=== PATIENT | female | born 1970 | race Hispanic/Latino ===

== ENCOUNTER 2022-03-01 23:10 | Emergency (ER) | payer OTHER ==
[2022-03-01] MEDS ORDERED: 0.9% NACL 500ML IV.SOLN 500 ML IV ONE (23:17)
[2022-03-01] MEDS ORDERED: PANTOPRAZOLE 40 MG/VIAL ONE (23:17)
[2022-03-01] MEDS ORDERED: ONDANSETRON 4MG INJ ONE (23:21)
[2022-03-01 23:25] LABS: BASOPHILS % (AUTO) 0.2 % (0.0-5.0); EOSINOPHILS % (AUTO) 3.4 % (0.0-8.0); HEMATOCRIT 41.9 % (36-48); LYMPHOCYTES % (AUTO) 42.9 % (21.0-51.0); MEAN CORPUSCULAR HGB CONC 33.2 g/dL (32.0-36.0); MEAN CORPUSCULAR VOLUME 90.5 fL (79-99); MONOCYTES % (AUTO) 5.5 % (3.0-13.0); NEUTROPHILS % (AUTO) 47.7 % (40.0-77.0); PLATELET COUNT (AUTO) 312 K/uL (130-400); RED BLOOD CELL COUNT(AUTO) 4.63 MIL/uL (4.00-5.50); RED CELL DISTRIBUTION WIDTH 13.1 % (11.0-15.5); WHITE BLOOD COUNT (AUTO) 20.1 K/uL (4.8-10.8)
[2022-03-01] MEDS ORDERED: MORPHINE 2 MG SYG IVP ONE (23:30)
[2022-03-01] MEDS ORDERED: ONDANSETRON 4MG INJ IVP ONE (23:30)
[2022-03-01 23:38] LABS: CREATININE 0.7 mg/dL (0.5-1.5); POTASSIUM 3.5 mmol/L (3.5-5.1)
[2022-03-01 23:42] LABS: ALBUMIN 3.9 g/dL (3.5-5.0); BILIRUBIN,TOTAL 0.1 mg/dL (0.2-1.0); TOTAL PROTEIN, SERUM 7.6 g/dL (6.0-8.3)
[2022-03-01] MEDS ORDERED: MORPHINE 2 MG SYG ONE (23:44)
[2022-03-01] MEDS ORDERED: LIDOCAINE HCL 2% VISCOUS 15 ML UDCUP ONE (23:52)
[2022-03-01] MEDS ORDERED: MAG/ALUM/SIMETH 30 ML UDCUP ONE (23:52)
[2022-03-01] MEDS ORDERED: DICYCLOMINE HCL 10 MG/5 ML ML PO ONE (23:52)
[2022-03-02] MEDS ORDERED: KETOROLAC 15MG/ML VIAL (15MG/ML) IV ONE
[2022-03-02 00:02] LABS: B-TYPE NATRIURETIC PEPTIDE 13 pg/mL (0-100)
[2022-03-02 00:45] VITALS: BP 132/78
== END 2022-03-02 01:13 | disposition home or self-care (01) ==
LOC: EDH 23:10 → EEVIPCON 23:10 → EDH 03-02 01:13
DX: R11.2 Nausea with vomiting, unspecified (principal); T50.6X5A Adverse effect of antidotes and chelating agents, initial encounter; R10.84 Generalized abdominal pain; Z88.0 Allergy status to penicillin; Z88.1 Allergy status to other antibiotic agents; Z88.5 Allergy status to narcotic agent; Z90.89 Acquired absence of other organs; Z90.49 Acquired absence of other specified parts of digestive tract; Y92.89 Other specified places as the place of occurrence of the external cause
CPT/HCPCS: 36415; 80053; 83690; 83880; 84484; 85025; 93005; 96374; 96375; 99284; C9113; J2405; J7040

== ENCOUNTER 2022-06-26 08:29 | Emergency (ER) | payer OTHER ==
[2022-06-26 08:57] LABS: BASOPHILS % (AUTO) 0.3 % (0.0-5.0); EOSINOPHILS % (AUTO) 3.5 % (0.0-8.0); HEMATOCRIT 40.3 % (36-48); LYMPHOCYTES % (AUTO) 35.5 % (21.0-51.0); MEAN CORPUSCULAR HEMOGLOBIN 30.8 pg (27.0-33.0); MEAN CORPUSCULAR HGB CONC 33.7 g/dL (32.0-36.0); MEAN CORPUSCULAR VOLUME 91.2 fL (79-99); MONOCYTES % (AUTO) 7.8 % (3.0-13.0); NEUTROPHILS % (AUTO) 52.6 % (40.0-77.0); PLATELET COUNT (AUTO) 296 K/uL (130-400); RED BLOOD CELL COUNT(AUTO) 4.42 MIL/uL (4.00-5.50); RED CELL DISTRIBUTION WIDTH 13.2 % (11.0-15.5); WHITE BLOOD COUNT (AUTO) 11.7 K/uL (4.8-10.8)
[2022-06-26] MEDS ORDERED: ONDANSETRON 4MG INJ IVP ONE (09:00)
[2022-06-26] MEDS ORDERED: MORPHINE 2 MG SYG IVP SCH (09:00)
[2022-06-26 09:05] LABS: CREATININE 0.7 mg/dL (0.5-1.5); POTASSIUM 3.7 mmol/L (3.5-5.1)
[2022-06-26 09:10] LABS: ALBUMIN 4.1 g/dL (3.5-5.0); TOTAL PROTEIN, SERUM 7.9 g/dL (6.0-8.3)
[2022-06-26 09:35] LABS: B-TYPE NATRIURETIC PEPTIDE 34 pg/mL (0-100)
[2022-06-26 09:42] LABS: INR 0.93 (0.85-1.15); PROTHROMBIN TIME 9.7 SEC (9.6-11.6)
[2022-06-26 09:43] LABS: PARTIAL THROMBOPLASTIN TIME 25.2 SEC (26.3-35.5)
[2022-06-26] MEDS ORDERED: PANTOPRAZOLE 40 MG/VIAL ONE (10:32)
[2022-06-26] MEDS ORDERED: BUSP15 PO (11:22)
[2022-06-26] MEDS ORDERED: NAPR375T6 PO (11:22)
[2022-06-26] MEDS ORDERED: PANT40TA55 PO (11:22)
[2022-06-26 11:47] VITALS: BP 124/74
== END 2022-06-26 11:50 | disposition home or self-care (01) ==
LOC: EDH 08:29
DX: K21.9 Gastro-esophageal reflux disease without esophagitis (principal); F41.9 Anxiety disorder, unspecified; M26.603 Bilateral temporomandibular joint disorder, unspecified; Z88.0 Allergy status to penicillin; Z88.1 Allergy status to other antibiotic agents; Z88.5 Allergy status to narcotic agent; Z90.49 Acquired absence of other specified parts of digestive tract
CPT/HCPCS: 99285; 96374; 70486; 76705; 96375; 80061; 82550; 84484; 80053; 83880; 85025; 85610; 85730; 36415; 93005; J2405; C9113

== ENCOUNTER → 2022-07-13 | Outpatient (CLI) | payer OTHER ==
[~2022-07-13] MED LIST: BUSP15 PO; GADOTERATE MEGLUMINE 10 MMOL/20 ML VIAL IV ONE; NAPR375T6 PO; PANT40TA55 PO
[2022-07-13 12:02] LABS: ALBUMIN 4.1 g/dL (3.5-5.0); CREATININE 0.8 mg/dL (0.5-1.5); POTASSIUM 3.5 mmol/L (3.5-5.1); TOTAL PROTEIN, SERUM 8.1 g/dL (6.0-8.3)
== END | disposition home or self-care (01) ==
LOC: LAB 11:21
PROVIDERS: ATTEND Hospitalist
DX: R51.9 Headache, unspecified (principal); R59.1 Generalized enlarged lymph nodes; Z86.73 Personal history of transient ischemic attack (TIA), and cerebral infarction without residual deficits
CPT/HCPCS: 70553; 80053; 82306; 36415; 70543; A9575

== ENCOUNTER → 2022-07-14 | Outpatient (CLI) | payer OTHER ==
[~2022-07-14] MED LIST changes: +IOHEXOL 350 MG/ML 100ML INFUS..BTL IV ONE
== END | disposition home or self-care (01) ==
LOC: RAH 07:18
PROVIDERS: ATTEND Hospitalist
DX: R59.1 Generalized enlarged lymph nodes (principal); E27.8 Other specified disorders of adrenal gland; R52 Pain, unspecified; Z90.49 Acquired absence of other specified parts of digestive tract
CPT/HCPCS: 74178; Q9967

== ENCOUNTER 2023-03-14 15:19 | Emergency (ER) | payer OTHER ==
[~2023-03-14] VITALS: Ht 154.9 cm; Wt 61.2 kg
[~2023-03-14 15:19] MED LIST changes: -GADOTERATE MEGLUMINE 10 MMOL/20 ML VIAL IV ONE; -IOHEXOL 350 MG/ML 100ML INFUS..BTL IV ONE
[2023-03-14] MEDS ORDERED: METOCLOPRAMIDE 10 MG/2 ML VIAL IVP ONE (15:30)
[2023-03-14] MEDS ORDERED: SOLU-MEDROL 125MG VIAL IVP ONE (15:30)
[2023-03-14] MEDS ORDERED: SOLU-MEDROL 40MG VIAL ONE (15:43)
[2023-03-14 15:58] LABS: BASOPHILS % (AUTO) 0.3 % (0.0-5.0); EOSINOPHILS % (AUTO) 3.8 % (0.0-8.0); HEMATOCRIT 39.6 % (36-48); LYMPHOCYTES % (AUTO) 41.8 % (21.0-51.0); MEAN CORPUSCULAR HEMOGLOBIN 29.9 pg (27.0-33.0); MEAN CORPUSCULAR HGB CONC 33.1 g/dL (32.0-36.0); MEAN CORPUSCULAR VOLUME 90.4 fL (79-99); NEUTROPHILS % (AUTO) 47.8 % (40.0-77.0); PLATELET COUNT (AUTO) 312 K/uL (130-400); RED BLOOD CELL COUNT(AUTO) 4.38 MIL/uL (4.00-5.50); RED CELL DISTRIBUTION WIDTH 13.6 % (11.0-15.5); WHITE BLOOD COUNT (AUTO) 11.8 K/uL (4.8-10.8)
[2023-03-14] MEDS ORDERED: SOLU-MEDROL 40MG VIAL IVP SCH (16:00)
[2023-03-14 16:11] LABS: CREATININE 0.7 mg/dL (0.5-1.5); POTASSIUM 3.6 mmol/L (3.5-5.1)
[2023-03-14 16:16] LABS: TOTAL PROTEIN, SERUM 7.3 g/dL (6.0-8.3)
[2023-03-14] MEDS ORDERED: GADOTERATE MEGLUMINE 10 MMOL/20 ML VIAL IV ONE (16:21)
[2023-03-14 18:28] VITALS: BP 139/85
[2023-03-14] MEDS ORDERED: TOPI25TA48 PO (18:31)
[2023-03-14] MEDS ORDERED: OXYC-38 PO (18:31)
== END 2023-03-14 18:46 | disposition home or self-care (01) ==
LOC: EDH 15:19
DX: G50.0 Trigeminal neuralgia (principal); R51.9 Headache, unspecified; R68.84 Jaw pain; R09.81 Nasal congestion; Z79.899 Other long term (current) drug therapy; Z90.49 Acquired absence of other specified parts of digestive tract; Z98.890 Other specified postprocedural states; Z85.820 Personal history of malignant melanoma of skin; Z88.0 Allergy status to penicillin; Z88.1 Allergy status to other antibiotic agents; Z88.5 Allergy status to narcotic agent
CPT/HCPCS: 70553; 99285; 96374; 96375; 80053; 85025; 36415; 70543; J2920; J2765; A9575

== ENCOUNTER → 2023-04-12 | Outpatient (CLI) | payer OTHER ==
[~2023-04-12] MED LIST changes: +OXYC-38 PO; +TOPI25TA48 PO
[2023-04-12 12:26] LABS: BASOPHILS % (AUTO) 0.3 % (0.0-5.0); EOSINOPHILS % (AUTO) 2.4 % (0.0-8.0); HEMATOCRIT 41.7 % (36-48); MEAN CORPUSCULAR HEMOGLOBIN 30.2 pg (27.0-33.0); MEAN CORPUSCULAR HGB CONC 33.8 g/dL (32.0-36.0); MEAN CORPUSCULAR VOLUME 89.3 fL (79-99); MONOCYTES % (AUTO) 6.2 % (3.0-13.0); NEUTROPHILS % (AUTO) 56.7 % (40.0-77.0); PLATELET COUNT (AUTO) 344 K/uL (130-400); RED BLOOD CELL COUNT(AUTO) 4.67 MIL/uL (4.00-5.50); RED CELL DISTRIBUTION WIDTH 13.5 % (11.0-15.5)
[2023-04-12 12:34] LABS: CREATININE 0.8 mg/dL (0.5-1.5); POTASSIUM 3.7 mmol/L (3.5-5.1)
== END | disposition home or self-care (01) ==
LOC: LAB 12:30
PROVIDERS: ATTEND Hospitalist
DX: E86.0 Dehydration (principal)
CPT/HCPCS: 36415; 80053; 85025

== ENCOUNTER 2024-03-31 11:07 | Emergency (ER) | payer OTHER ==
[~2024-03-31] VITALS: Ht 154.9 cm; Wt 56.7 kg
[2024-03-31 12:32] VITALS: BP 122/63; PULSE 81; RESP 20; O2SAT 98
== END 2024-03-31 12:32 | disposition home or self-care (01) ==
LOC: EDH 11:07
DX: S90.31XA Contusion of right foot, initial encounter (principal); Z79.899 Other long term (current) drug therapy; Z88.0 Allergy status to penicillin; Z88.1 Allergy status to other antibiotic agents; Z88.5 Allergy status to narcotic agent; Z90.49 Acquired absence of other specified parts of digestive tract; X50.1XXA Overexertion from prolonged static or awkward postures, initial encounter; Y93.89 Activity, other specified; Y92.89 Other specified places as the place of occurrence of the external cause; Y99.8 Other external cause status
CPT/HCPCS: 29515; 73562; 73610; 73630

== ENCOUNTER → 2024-09-03 | Outpatient (CLI) | payer OTHER ==
[~2024-09-03] MED LIST changes: +GADOTERATE MEGLUMINE 10 MMOL/20 ML VIAL IV ONE; +NAPR-1505 PO; -NAPR375T6 PO
[2024-09-03 08:05] LABS: BASOPHILS # (AUTO) 0.03 K/uL (0.00-0.20); BASOPHILS % (AUTO) 0.3 % (0.0-5.0); EOSINOPHILS # (AUTO) 0.41 K/uL (0.00-0.70); EOSINOPHILS % (AUTO) 3.9 % (0.0-8.0); HEMATOCRIT 44.3 % (36-48); IMMATURE GRANULOCYTE ABSOLUTE 0.02 K/uL (0-1); LYMPHOCYTES # (AUTO) 3.9 K/uL (1.0-4.8); LYMPHOCYTES % (AUTO) 37.6 % (21.0-51.0); MEAN CORPUSCULAR HEMOGLOBIN 31.1 pg (27.0-33.0); MEAN CORPUSCULAR HGB CONC 33.6 g/dL (32.0-36.0); MEAN CORPUSCULAR VOLUME 92.5 fL (79-99); MONOCYTES # (AUTO) 0.7 K/uL (0.1-1.0); MONOCYTES % (AUTO) 6.6 % (3.0-13.0); NEUTROPHILS # (AUTO) 5.4 K/uL (1.8-7.7); NEUTROPHILS % (AUTO) 51.4 % (40.0-77.0); PLATELET COUNT (AUTO) 363 K/uL (130-400); RED BLOOD CELL COUNT(AUTO) 4.79 MIL/uL (4.00-5.50); RED CELL DISTRIBUTION WIDTH 13.6 % (11.0-15.5); WHITE BLOOD COUNT (AUTO) 10.4 K/uL (4.8-10.8)
[2024-09-03 08:30] LABS: ALBUMIN 3.9 g/dL (3.5-5.0); BILIRUBIN,TOTAL 0.5 mg/dL (0.2-1.0); CREATININE 0.7 mg/dL (0.5-1.0); POTASSIUM 3.6 mmol/L (3.5-5.1); THYROID STIMULATING HORMONE 1.33 uIU/mL (0.36-3.74); TOTAL PROTEIN, SERUM 7.8 g/dL (6.0-8.3)
[2024-09-03 09:24] LABS: ERYTHROCYTE SEDIMENTATION RATE 15 MM/HR (0-30)
--- NOTE | 2024-09-03 10:24 | HMCIMG ---
US THYROID/NECK REASON: enlarged lymph nodes, nontoxic single thyroid nodule COMPARISON: None TECHNIQUE: Routine thyroid sonogram was performed. FINDINGS: There is homogeneous appearing thyroid parenchyma. Right lobe is 3.5 x 1.3 x 1.9 cm. Left is 3.2 x 1.2 x 1.5 cm. There is a 3 mm cyst in the central portion of the right lobe of the thyroid. There are no solid masses in either lobe of the thyroid. There are adjacent normal-appearing lymph nodes, most subcentimeter in size, largest 1.3 cm. Both submandibular glands were visualized and appear normal. The region of interest in the left anterior neck appears to correspond to with a prominent portion of the thyroid cartilage. IMPRESSION: 1. 3 mm cyst right lobe of the thyroid gland, thyroid sonogram is otherwise normal. 2. Normal-appearing lymph nodes in the right and left anterior cervical triangle as well. 3. Possible palpable mass appears to correspond with a prominent left side of the thyroid cartilage.
--- NOTE | 2024-09-03 10:29 | HMCIMG ---
US SOFT TISSUE GROIN REASON: Enlarged lymph nodes COMPARISON: None TECHNIQUE: Bilateral inguinal ultrasound was performed for evaluation of lymphadenopathy. FINDINGS: There are multiple bilateral inguinal lymph nodes. All but 2 on the right are subcentimeter in size, there is an 11 mm node and a 2.5 cm node. These all have normal-appearing fatty replaced ministerio. Left side also shows multiple lymph nodes. Many of these are greater than 1 cm, however the largest is 1.9 cm. These also appear to have normal fatty replaced ministerio. IMPRESSION: 1. Nonspecific bilateral inguinal lymphadenopathy.
[2024-09-03 10:39] LABS: EOSINOPHILS % (MANUAL) 3 % (1-6); LYMPHOCYTES % (MANUAL) 22 % (22-44); MONOCYTES % (MANUAL) 9 % (2-9); SEGMENTED NEUTROPHILS % 66 % (40-70); TOTAL CELLS COUNTED 100
[2024-09-03 10:40] LABS: MAN.DIFF COMMENT-IMPRESSION MANUAL DIFFERENTIAL; PLATELET MORPHOLOGY COMMENT ADEQUATE; WBC MORPHOLOGY NORMAL
--- NOTE | 2024-09-03 10:55 | HMCIMG ---
CHEST 2VWS REASON: DR ORDER COMPARISON: None FINDINGS: Two views of the chest were obtained. Lungs are clear. Heart size is normal. There is no pulmonary vascular congestion. Mediastinum and bony thorax appear unremarkable. IMPRESSION: Normal two view chest x-ray.
--- NOTE | 2024-09-03 11:05 | HMCIMG ---
MR BRAIN WWO CON REASON: G44.021 Chronic cluster headache, intractable COMPARISON: There are no prior MRI scans available for comparison. TECHNIQUE: Routine cerebral imaging protocol was performed. Images are also obtained pre and post gadolinium contrast infusion. CONTRAST: 12 cc Clariscan IV. FINDINGS: There is normal appearing brain parenchyma. There are no focal mass lesions. There are no areas of abnormal contrast enhancement or abnormal signal intensity. Ventricles and sulci appear normal. Posterior fossa and brainstem structures appear unremarkable. There is no evidence of intracranial hemorrhage. Diffusion-weighted images are negative for an acute ischemic process. There are no abnormal fluid collections. Extracranial soft tissues appear normal as well. IMPRESSION: 1. Normal pre and postcontrast MRI of the brain.
--- NOTE | 2024-09-03 11:06 | HMCIMG ---
MR ANGIO HEAD, WO CON REASON: CLUSTER HEADACHES TECHNIQUE: Routine MRA sequences were generated with gradient-recalled source data. FINDINGS: There are normal-appearing internal carotid arteries. Anterior, middle and posterior cerebral arteries appear unremarkable. Posterior fossa vessels appear normal as well. There is no evidence of aneurysm or AVM. There is no evidence of focal vessel occlusion. IMPRESSION: Normal MR angiography of the brain.
--- NOTE | 2024-09-03 11:22 | HMCIMG ---
SCREENING MAMMOGRAM REASON: Annual Exam COMPARISON: None, reestablish baseline TECHNIQUE: CC and MLO views of the bilateral breasts were performed.Implant displacement views were performed as well. CAD was performed as well. FINDINGS: Parenchymal density: The breasts are heterogeneously dense, which may obscure small masses. There are no focal mass lesions. There are no pathologic appearing calcifications. There is no evidence of architectural distortion or skin thickening. There are implants in place without evidence of rupture. IMPRESSION: Normal screening mammogram The patient was entered into a reminder system with a target due date for their next mammogram. BI-RADS CATEGORY 2: BENIGN FINDINGS Recommend monthly self breast exam as well as annual clinical examination. A negative x-ray should not delay biopsy if a dominant or clinically suspicious mass is present, since 8-10% of cancers are not identified by mammography. Dense breasts particularly, may obscure an underlying neoplasm. Some of these may be detected clinically and therefore, clinical examination is an essential part of breast evaluation.
== END | disposition home or self-care (01) ==
LOC: RAH 07:33
PROVIDERS: ATTEND Internal Medicine
DX: Z12.31 Encounter for screening mammogram for malignant neoplasm of breast (principal); R92.333 Mammographic heterogeneous density, bilateral breasts; E04.1 Nontoxic single thyroid nodule; R59.9 Enlarged lymph nodes, unspecified; G44.021 Chronic cluster headache, intractable; Z79.899 Other long term (current) drug therapy
CPT/HCPCS: 70553; 77067; 71046; 80061; 84443; 80053; 85025; 85651; 86147 ×2; 36415; 76536; 76882; 70544; A9575

== ENCOUNTER → 2024-10-10 | Outpatient (CLI) | payer OTHER ==
[~2024-10-10] MED LIST changes: +ALPR0.5T PO; +AMOX500T2 PO; +GABA-1405 PO; -GADOTERATE MEGLUMINE 10 MMOL/20 ML VIAL IV ONE; +MELA10TA2 PO; +ZOLP10TA2 PO
--- NOTE | 2024-10-10 11:28 | HMCIMG ---
US ABDOMINAL COMPLETE REASON: ruq pain COMPARISON: None FINDINGS: There is mild fatty infiltration of the liver. There are no focal mass lesions. The liver is borderline in size at 17 cm.The gallbladder is surgically absent. Kidneys appear normal in size and appearance. There is no evidence of mass, stone or hydronephrosis. Spleen and common duct appear normal. Aorta and inferior vena cava appear normal. The pancreas appears normal as well. There is a 3.5 cm mass in the region of the right adrenal gland, CT showed low attenuation mass consistent with adrenal adenoma. IMPRESSION: 1. Mild hepatic steatosis, the liver is borderline in size at 17 cm. 2. Absent gallbladder. 3. Probable 3.5 cm adrenal adenoma. 4. No acute finding.
== END | disposition home or self-care (01) ==
LOC: RAH 08:17
PROVIDERS: ATTEND Internal Medicine Gastroenterology
DX: K76.0 Fatty (change of) liver, not elsewhere classified (principal); E27.8 Other specified disorders of adrenal gland; R10.11 Right upper quadrant pain; Z90.49 Acquired absence of other specified parts of digestive tract
CPT/HCPCS: 76700

== ENCOUNTER 2024-10-13 10:17 | Day surgery (SDC) | payer OTHER ==
[2024-10-13] VITALS (11 sets, daily range): BP systolic 86–130; BP diastolic 42–74; PULSE 65–79; RESP 18; TEMP 97.6–97.8
[~2024-10-13] VITALS: Ht 154.9 cm; Wt 57.2 kg
[~2024-10-13 10:17] MED LIST changes: -AMOX500T2 PO; -BUSP15 PO; -NAPR-1505 PO; -OXYC-38 PO; -PANT40TA55 PO; -TOPI25TA48 PO
[2024-10-13] MEDS ORDERED: AMOX500T2 PO (11:06)
[2024-10-13] MEDS: 0.9%NACL 1000ML 1,000 ML IV ONE (11:09)
[2024-10-13] MEDS ORDERED: proPOFol 10 MG/ML 20ML VIAL IV ONE ×2 (11:30→11:58)
[2024-10-13] MEDS ORDERED: GLYCOPYRROLATE 0.2 MG/ML 5 ML VIAL ONE (11:53)
== END 2024-10-13 13:20 | disposition home or self-care (01) ==
LOC: DAH 10:17 → ENDO 10:17
PROVIDERS: ATTEND Internal Medicine Gastroenterology
DX: R19.7 Diarrhea, unspecified (principal); K29.50 Unspecified chronic gastritis without bleeding; D12.5 Benign neoplasm of sigmoid colon; D12.0 Benign neoplasm of cecum; R63.4 Abnormal weight loss; J44.9 Chronic obstructive pulmonary disease, unspecified; E78.5 Hyperlipidemia, unspecified; K21.9 Gastro-esophageal reflux disease without esophagitis; F41.9 Anxiety disorder, unspecified; R93.3 Abnormal findings on diagnostic imaging of other parts of digestive tract; R59.0 Localized enlarged lymph nodes; F17.210 Nicotine dependence, cigarettes, uncomplicated; Z68.23 Body mass index [BMI] 23.0-23.9, adult; Z90.49 Acquired absence of other specified parts of digestive tract; Z90.710 Acquired absence of both cervix and uterus; Z98.891 History of uterine scar from previous surgery; Z80.9 Family history of malignant neoplasm, unspecified; Z82.5 Family history of asthma and other chronic lower respiratory diseases; Z83.3 Family history of diabetes mellitus; Z82.49 Family history of ischemic heart disease and other diseases of the circulatory system; Z88.5 Allergy status to narcotic agent; Z88.0 Allergy status to penicillin; Z88.1 Allergy status to other antibiotic agents; Z79.899 Other long term (current) drug therapy; Z98.890 Other specified postprocedural states
CPT/HCPCS: 45380; 45385; 43239; J7030 ×2; J2704 ×2; J3490; A4620; A4215 ×2; A4223; A4657; A4222; A4221; A4663; A4606